=== PATIENT | female | born 1980 | race Caucasian/White ===

== ENCOUNTER 2017-04-17 21:16 | Emergency (ER) | payer OTHER ==
[2017-04-17 21:27] VITALS: BP 128/74; PULSE 74; RESP 18; TEMP 98; O2SAT 98
[2017-04-17] MEDS ORDERED: SUBO8MIS SL (21:39)
[2017-04-17] MEDS ORDERED: CEPHALEXIN MONOHYDRATE 500 MG CAP PO ONE (22:30)
[2017-04-17] MEDS ORDERED: TETANUS/DIPHTHERIA TOXOID ADULT 0.5 ML VIAL IM ONE (22:30)
[2017-04-17] MEDS ORDERED: LIDOCAINE 2%/EPINEPHrine 1:100,000 30ML MDV INFIL ONE (22:30)
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
[2017-04-18] MEDS ORDERED: CEPH-460 PO (00:34)
[2017-04-18] MEDS ORDERED: IBUP800T23 PO (00:34)
== END 2017-04-18 02:07 | disposition home or self-care (01) ==
LOC: NEPD 21:16
DX: S51.811A Laceration without foreign body of right forearm, initial encounter (principal); S56.921A Laceration of unspecified muscles, fascia and tendons at forearm level, right arm, initial encounter; Z23 Encounter for immunization; Z72.0 Tobacco use; Z86.19 Personal history of other infectious and parasitic diseases; W25.XXXA Contact with sharp glass, initial encounter
CPT/HCPCS: 12005; 90471; 90714